=== PATIENT | female | born 1970 | race Caucasian/White ===

== ENCOUNTER 2018-02-01 17:51 | Emergency (ER) | payer MEDICAID ==
[~2018-02-01] VITALS: Ht 167.6 cm; Wt 65.8 kg
[2018-02-01 17:57] VITALS: BP 120/66
--- NOTE | 2018-02-01 18:01 | NUR ---
PT AMBULATES BACK TO THE LOBBY
--- NOTE | 2018-02-01 18:21 | NUR ---
PT AMBULATES TO BED 5
--- NOTE | 2018-02-01 18:21 | NUR ---
PT AMBULATES TO BED 5
--- NOTE | 2018-02-01 18:23 | NUR ---
C/O GUSHING/BLOODY STOOL FRIDAY AND TODAY WITH SWELLING ON THE RT LOWER EXTREMITIY, CMS INTACT, DENIES INJURY; DENIES DIZZINESS, SOB, NAUSEA, HEADACHE, LIGHTHEADEDNESS. DENIES PAIN. HX; DENIES RX; DENIES
[2018-02-01] MEDS ORDERED: NACL 0.9% 1,000 ML IV ONE (18:25)
[2018-02-01 18:43] LABS: BASOPHILS # (AUTO) 0.1 K/uL (0.00-0.22); BASOPHILS % (AUTO) 0.9 % (0.0-2.0); EOSINOPHILS # (AUTO) 0.3 K/uL (0-0.4); EOSINOPHILS % (AUTO) 4.4 % (0.0-4.0); HEMATOCRIT 31.5 % (36-48); HEMOGLOBIN 9.8 g/dL (12.0-16.0); LYMPHOCYTES # (AUTO) 2.3 K/uL (2.5-16.5); LYMPHOCYTES % (AUTO) 33.4 % (20.5-51.1); MEAN CORPUSCULAR HEMOGLOBIN 24 pg (27-31); MEAN CORPUSCULAR HGB CONC 31 g/dL (33-37); MEAN CORPUSCULAR VOLUME 77.8 fL (80-94); MONOCYTES # (AUTO) 0.8 K/uL (0.8-1.0); MONOCYTES % (AUTO) 12.1 % (1.7-9.3); NEUTROPHILS # (AUTO) 3.4 K/uL (1.8-7.7); NEUTROPHILS % (AUTO) 49.2 % (42.2-75.2); PLATELET COUNT (AUTO) 289 K/uL (140-450); RED BLOOD CELL COUNT(AUTO) 4.05 MIL/uL (4.20-5.40); WHITE BLOOD COUNT (AUTO) 6.9 K/uL (4.8-10.8)
[2018-02-01 18:57] LABS: ANION GAP 12.2 (8-16); CARBON DIOXIDE 29.4 mmol/L (21-32); CREATININE 0.9 mg/dL (0.6-1.3); POTASSIUM 3.6 mmol/L (3.5-5.1)
[2018-02-01 19:03] LABS: ALBUMIN 3.6 g/dL (3.4-5.0); TOTAL BILIRUBIN 0.3 mg/dL (0.0-1.0)
--- NOTE | 2018-02-01 19:14 | NUR ---
report given to Shoaib ALVARADO
[2018-02-01 20:04] LABS: PROTHROMBIN TIME 9.5 secs (10.8-13.4)
[2018-02-01 20:48] VITALS: BP 129/78
--- NOTE | 2018-02-01 20:49 | NUR ---
Patient discharged with v/s stable. Written and verbal after care instructions given and explained. Patient alert, oriented and verbalized understanding of instructions. Ambulatory with steady gait. All questions addressed prior to discharge. ID band removed. Patient advised to follow up with PMD. Opportunity to ask questions provided and answered.
== END 2018-02-01 20:48 | disposition home or self-care (01) ==
LOC: MED 17:51
DX: K57.91 Diverticulosis of intestine, part unspecified, without perforation or abscess with bleeding (principal)
CPT/HCPCS: 36415; 74176; 80053; 81002; 81025; 84702; 85025; 85610; 85730; 99284; J7030